=== PATIENT | male | born 1985 | race Asian ===

== ENCOUNTER 2020-07-18 09:48 | Emergency (ER) | payer BC ==
[2020-07-18 10:24] LABS: #Basophils 0.1 thou/uL (0.0-0.2); #Eosinphils 0.1 thou/uL (0.0-0.7); #Lymphocytes 3.1 thou/uL (1.20-3.40); #Monocytes 0.5 thou/uL (0.11-0.59); #Neutrophils 2.7 thou/uL (1.40-6.50); %Basophils 1.1 % (0.0-1.0); %Eosinophils 1.6 % (0.0-10.0); %Monocytes 8.1 % (0.0-10.0); %Neutrophils 41.1 % (42.0-75.0); Hemoglobin 16.1 g/dL (14.0-18.0); Mean Corpuscular Hemoglobin 30.1 pg (27.0-31.0); Mean Corpuscular Volume 88.4 fL (78.0-98.0); Mean Platelet Volume 7.8 fL (7.4-10.4); Platelet Count 197 thou/uL (130-400); RBC Distribution Width 11.6 % (11.5-14.5); Red Blood Cell (RBC) Count 5.35 mill/uL (4.70-6.10); White Blood Cell (WBC) Count 6.5 thou/uL (4.8-10.8)
[2020-07-18 10:47] LABS: ALT (SGPT) 83 U/L (8-55); AST (SGOT) 35 U/L (5-34); Albumin 4.6 g/dL (3.5-5.0); Alkaline Phosphatase 74 U/L (40-110); Anion Gap 14 mmol/L (10-20); BUN (Urea Nitrogen) 14 mg/dL (8.9-20.6); Bilirubin, Total 0.5 mg/dL (0.2-1.2); Calc. Creatinine Clearance 0 mL/min (70-130); Calcium 9.4 mg/dL (7.8-10.44); Carbon Dioxide 24 mmol/L (22-29); Chloride 104 mmol/L (98-107); Globulin 3.6 g/dL (2.4-3.5); Glucose 100 mg/dL (70-105); Potassium 4.4 mmol/L (3.5-5.1); Protein, Total 8.2 g/dL (6.0-8.3); Sodium 138 mmol/L (136-145)
[2020-07-18] MEDS ORDERED: Aspirin 325 MG TAB ONE (10:49)
--- NOTE | 2020-07-18 10:51 | CT ---
CTA Angio Chest W WO Con 07/18/2020 10:34 AM Indication: History of shortness breath and chest pressure Technique: Multiple CTA images were obtained of the thorax with IV contrast. 3-D rendering: MIP martha nstructed images were created and reviewed. Comparison: No relevant prior studies available. Findings: Pulmonary arteries: No central or segmental pulmonary embolus is evident. Heart and Aorta: Normal appearing. Mediastinum:Normal appearing. No enlarged lymph nodes. Lungs:The lungs are clear. Pleural space: Clear. Upper Abdomen: There is fatty infiltration of liver. There is a very tiny hypodensity within the rig ht hepatic dome difficult characterize due to its size. Adrenal glands appear within normal limits. Osseous Structures: No acute osseous abnormality. Soft tissues:No abnormality. Other findings:None. Impression: 1. No central or segmental pulmonary embolus. 2. Fatty infiltration of the liver. 3. Small to characterize right hepatic dome hypodensity measuring 4 mm.
[2020-07-18] MEDS ORDERED: Iopamidol-370 76% 500 ML 1 ML ONE (11:50)
== END 2020-07-18 11:46 | disposition home or self-care (01) ==
LOC: ERS 09:48
DX: R07.9 Chest pain, unspecified (principal); Z86.16 Personal history of COVID-19
CPT/HCPCS: 71275; 80053; 83880; 84484; 85025; 93005; Q9967